=== PATIENT | female | born 1995 | race Caucasian/White ===

== ENCOUNTER 2019-02-14 16:35 | Inpatient (IN) ==
[2019-02-14] MEDS ORDERED: OXYTOCIN 30 UNITS/500 ML BAG IV PRN ×2 (17:13→22:36)
--- NOTE | 2019-02-14 17:30 | History & Physical Report ---
Date of Service February 14, 2019 Assessment & Plan (1) Uterine contractions at greater than 20 weeks of gestation: 23 yo at 38.4 wks with ctxs, in active labor, desires epidural for pain VSS Afebrile FHR reassuring GBS+ She is benign admitted Pharmacy is called for PCN RADHA Epidural for pain Anticipate History of Present Illness Chief Complaint: Contractions Primary Care Provider: NO PCP Patient is a 23 yo at 38.4 wks who has been feeling irregular ctxs since this morning Got closer and regular after 2pm No LOF/VB +FM Denies medical problems GBS+ Allergies Allergy/AdvReac Type Severity Reaction Status Date / Time azithromycin Allergy Hives Verified 02/14/19 17:01 Home Medications Home Medications Medication Instructions Recorded Confirmed Type famotidine [Pepcid] 20 mg PO BID 02/14/19 02/14/19 History vit no.[id number] 1 tab PO DAILY 02/14/19 02/14/19 History [ Vitamin] Patient History Social History Preferred Language: Citizen Of [place] marital status: Single Feels Safe at Home: Yes Safety Concerns: Feels Safe At This Time Smoking Status: Former smoker Do You Dip or Chew Tobacco: No ; Smoking End Date: 2017 ; Second Hand Exposure: No ; Tobacco Cessation Education Requested by Patient: No Hx Alcohol Use: No 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 Denies h/o any STD's, no h/o HSV/ GC/ Chlamydia Review of Systems All systems reviewed & are unremarkable except as noted in HPI & below Physical Exam Constitutional: WD/WN, vitals as above well developed, well nourished and + acute distress (with ctxs) Gastrointestinal (Abdomen): normal bowel sounds, soft, nontender, no hepatosplenomegaly ctxs q 3-4 min Genitourinary: 5 cm/ intact bag and -1 vertex per LAKIA Thomas Results & Data Vital Signs (Past 12 Hours) Vital Signs Temp Pulse Resp BP 02/14/19 16:47 36.6 C 60 18 130/82 02/14/19 16:45 60 130/82 Monitoring External Monitor 130's reactive Tocodynamometer ctxs q 3-4 min
[2019-02-14] MEDS ORDERED: PENICILLIN G POTASSIUM 6 MU in DEXTROSE 5% 250 ML IV ONE (17:45)
[2019-02-14 17:47] LABS: Hematocrit (blood only) 38.4 % (37-47); Hemoglobin 13.6 g/dL (12.0-16.0); Mean Corpuscular Hemoglobin 31.5 pg (25-34); Mean Corpuscular Volume 88.9 fL (80-100); Mean Platelet Volume 11.7 fL (7.4-10.4); Platelet Count 183 K/uL (130-400); RDW Coefficient of Variation 13.3 % (11.5-14.5); RDW Standard Deviation 43.5 fL (36.4-46.3); Red Blood Count 4.32 M/uL (4.2-5.4); White Blood Count 13.31 K/uL (4.8-10.8)
[2019-02-14] MEDS: LACTATED RINGER'S 1,000 ML IV PRN ×3 (17:47→23:20)
[2019-02-14] MEDS ORDERED: fentaNYL citrate 100 MCG/2 ML VIAL ONE (17:50)
[2019-02-14] MEDS ORDERED: ePHEDrine sulfate 50 MG/ML AMP ONE (17:50)
[2019-02-14] MEDS ORDERED: BUPIVACAINE 0.25% 30 ML VIAL ONE (17:51)
[2019-02-14] MEDS ORDERED: fentaNYL 2MCG/ML ROPIV 1.25MG/ML 100 ML BAG EPI ONE (17:51)
[2019-02-14 17:54] LABS: Mean Corpuscular Hgb Conc 35.4 g/dL (32-36)
--- NOTE | 2019-02-14 18:15 | Anesthesiology Consultation ---
Date of Service February 14, 2019 Assessment & Plan Chart Review Chart Review: Patient NOT seen in Pre Admission Testing and Acceptable Risk for Labor Epidural Consults Requested none ASA ASA2 Proposed Anesthesia Anesthesia Type: Labor Epidural and CSE Risk / Benefits Reviewed With: PT / POA / Parent / Guardian, Accepts Plan and Informed Consent Obtained History Height/Weight Height: 5 ft 5 in Weight: 112.491 kg Allergies Allergy/AdvReac Type Severity Reaction Status Date / Time azithromycin Allergy Hives Verified 02/14/19 17:01 Medications Home Medications Medication Instructions Recorded Confirmed Last Taken famotidine [Pepcid] 20 mg PO BID 02/14/19 02/14/19 02/14/19 08:00 vit no.[id number] 1 tab PO DAILY 02/14/19 02/14/19 02/14/19 08:00 [ Vitamin] Active Medications Generic Name Dose Route Start Last Admin Trade Name Freq PRN Reason Stop Dose Admin Penicillin G Potassium 6 mu/ 262 mls @ 262 mls/hr 02/14/19 17:45 02/14/19 17:55 Dextrose IV 02/14/19 18:44 262 mls/hr NOW ONE Administration Lactated Ringer's 1,000 mls @ 125 mls/hr 02/14/19 17:13 02/14/19 17:47 Lr IV 02/16/19 17:12 999 mls/hr .Q8H PRN Administration L&D Protocol Protocol NPO Date Last Intake of Fluids: 02/14/19 Time Last Intake of Fluids: 12:00 Date Last Intake of Solids: 02/14/19 Time Last Intake of Solids: 12:00 Past Medical History Medical History Forearm fracture Left forearm [place] teeth extracted Exercise / Class Metabolic Activity II 4-5 Yardwork/Stairs/Walk up hill Past Anesthesia History No Hx of Anesthesia Complications and No Family Hx of Anesthesia Complications History of PONV No Hx of PONV and No Hx of Motion Sickness Social History Smoking Status: Former smoker Do You Dip or Chew Tobacco: No Smoking End Date: 2017 Hx Alcohol Use: No Hx Substance Use: No substance use type: does not use Review of Systems no chest pain or sob Physical Exam Vital Signs Last Vital Signs Temp 36.6 C 02/14/19 16:47 Pulse 66 02/14/19 18:10 Resp 18 02/14/19 16:47 BP 130/82 02/14/19 16:47 Pulse Ox 97 02/14/19 18:10 ENMT Mouth: no TMJ abnormality Thyromental Distance: > or= 3.5 Finger Breadths Mallampati Class: II Neck normal visual inspection Respiratory normal respiratory effort Auscultation: lungs clear to auscultation bilaterally Cardiovascular Rate/Rhythm: regular rate and regular rhythm Musculoskeletal Spine: normal cervical ROM Neurologic moves all extremities Psychiatric Orientation: alert and oriented x 3 Testing Laboratory Results 02/14/19 17:34
[2019-02-14] MEDS ORDERED: DiphenhydrAMINE HCL 50 MG/ML VIAL IV PRN (18:16)
[2019-02-14] MEDS ORDERED: ePHEDrine sulfate 50 MG/ML AMP IV PRN (18:16)
[2019-02-14] MEDS ORDERED: ONDANSETRON INJ 2 MG/ML 2 ML VIAL IV PRN (18:16)
[2019-02-14] MEDS ORDERED: fentaNYL 2MCG/ML ROPIV 1.25MG/ML 100 ML BAG EPI PRN (18:16)
[2019-02-14] MEDS ORDERED: NALOXONE HCL 1 MG in SODIUM CHLORIDE 0.9% 1000ML 1,000 ML IV PRN (18:16)
[2019-02-14] MEDS ORDERED: NALBUPHINE HCL INJ 10 MG/ML AMP IV PRN (18:16)
[2019-02-14] MEDS ORDERED: NALOXONE HCL 0.4 MG/1 ML VIAL/CARP IV PRN (18:16)
[2019-02-14] MEDS ORDERED: CALCIUM CARBONATE 500 MG CHEWABLE TAB PO PRN (20:45)
[2019-02-14] MEDS ORDERED: CALCIUM CARBONATE 500 MG CHEWABLE TAB ONE (20:49)
--- NOTE | 2019-02-14 20:56 | Obstetrical Progress Note ---
Date of Service February 14, 2019 Subjective Patient is reevaluated She is comfortable now, received epidural FHR had been categ I VE; gross leaking, clear, Nitrazine +, still has large bag, head at 0 station Plan to AROM and push after 2nd dose of PCN will be started Results & Data Vital Signs (Past 12 Hours) Vital Signs Temp Pulse Resp BP Pulse Ox 02/14/19 20:50 96 H 157/60 H 97 02/14/19 20:45 92 H 97 02/14/19 20:40 87 96 02/14/19 20:39 81 123/66 93 02/14/19 20:35 91 H 97 02/14/19 20:30 91 H 18 120/55 L 98 02/14/19 20:25 85 99 02/14/19 20:20 87 99 02/14/19 20:19 85 112/56 L 02/14/19 20:15 85 99 02/14/19 20:10 77 100 02/14/19 20:09 78 111/64 02/14/19 20:05 76 99 02/14/19 20:00 80 18 99 02/14/19 19:59 79 116/60 02/14/19 19:55 83 99 02/14/19 19:50 87 99 02/14/19 19:49 86 119/65 02/14/19 19:45 86 99 02/14/19 19:40 88 110/72 100 02/14/19 19:35 96 H 100 02/14/19 19:30 88 18 109/66 100 02/14/19 19:25 87 100 02/14/19 19:20 85 100 02/14/19 19:15 94 H 100 02/14/19 19:10 97 H 126/90 100 02/14/19 19:05 99 H 99 02/14/19 19:00 90 121/96 100 02/14/19 18:55 93 H 100 02/14/19 18:50 86 124/75 99 02/14/19 18:47 102 H 91 02/14/19 18:45 101 H 100 02/14/19 18:44 101/63 02/14/19 18:42 87 113/74 02/14/19 18:40 92 H 103/69 99 02/14/19 18:38 80 102/64 02/14/19 18:36 80 105/66 02/14/19 18:35 76 99 02/14/19 18:34 68 107/59 L 02/14/19 18:32 75 115/65 02/14/19 18:30 72 98 02/14/19 18:29 68 119/63 02/14/19 18:26 63 133/72 02/14/19 18:25 61 99 02/14/19 18:20 70 100 02/14/19 18:15 79 97 02/14/19 18:10 66 97 02/14/19 18:07 72 92 02/14/19 18:05 64 96 02/14/19 18:00 61 95 02/14/19 16:47 36.6 C 60 18 130/82 02/14/19 16:45 60 130/82
--- NOTE | 2019-02-14 21:35 | Obstetrical Progress Note ---
Date of Service February 14, 2019 Subjective FHR had prolonged decel to 80-90's VE: 10/100% +1, bulging bag was AROM'ed and clear fluid IVF bolus, Nasal O2 was started FHR recovered, good variability Started to push with ctxs Continue to monitor closely Results & Data Vital Signs (Past 12 Hours) Vital Signs Temp Pulse Resp BP Pulse Ox 02/14/19 21:30 90 98 02/14/19 21:29 82 133/63 02/14/19 21:25 84 99 02/14/19 21:20 84 98 02/14/19 21:19 76 134/63 02/14/19 21:15 91 H 99 02/14/19 21:10 82 132/60 98 02/14/19 21:07 110 H 91 02/14/19 21:05 87 99 02/14/19 21:01 96 H 130/77 02/14/19 21:00 101 H 98 02/14/19 20:59 83 136/69 02/14/19 20:55 84 96 02/14/19 20:50 96 H 157/60 H 97 02/14/19 20:45 92 H 97 02/14/19 20:40 87 96 02/14/19 20:39 81 123/66 93 02/14/19 20:35 91 H 97 02/14/19 20:30 91 H 18 120/55 L 98 02/14/19 20:25 85 99 02/14/19 20:20 87 99 02/14/19 20:19 85 112/56 L 02/14/19 20:15 85 99 02/14/19 20:10 77 100 02/14/19 20:09 78 111/64 02/14/19 20:05 76 99 02/14/19 20:00 80 18 99 02/14/19 19:59 79 116/60 02/14/19 19:55 83 99 02/14/19 19:50 87 99 02/14/19 19:49 86 119/65 02/14/19 19:45 86 99 02/14/19 19:40 88 110/72 100 02/14/19 19:35 96 H 100 02/14/19 19:30 88 18 109/66 100 02/14/19 19:25 87 100 02/14/19 19:20 85 100 02/14/19 19:15 94 H 100 02/14/19 19:10 97 H 126/90 100 02/14/19 19:05 99 H 99 02/14/19 19:00 90 121/96 100 02/14/19 18:55 93 H 100 02/14/19 18:50 86 124/75 99 02/14/19 18:47 102 H 91 02/14/19 18:45 101 H 100 02/14/19 18:44 101/63 02/14/19 18:42 87 113/74 02/14/19 18:40 92 H 103/69 99 02/14/19 18:38 80 102/64 02/14/19 18:36 80 105/66 02/14/19 18:35 76 99 02/14/19 18:34 68 107/59 L 02/14/19 18:32 75 115/65 02/14/19 18:30 72 98 02/14/19 18:29 68 119/63 02/14/19 18:26 63 133/72 02/14/19 18:25 61 99 02/14/19 18:20 70 100 02/14/19 18:15 79 97 02/14/19 18:10 66 97 02/14/19 18:07 72 92 02/14/19 18:05 64 96 02/14/19 18:00 61 95 02/14/19 16:47 36.6 C 60 18 130/82 02/14/19 16:45 60 130/82
[2019-02-14] MEDS ORDERED: PENICILLIN G POTASSIUM 3 MU in DEXTROSE 5% 100 ML IV PRN (21:45)
--- NOTE | 2019-02-14 22:16 | Obstetrical Progress Note ---
Date of Service February 14, 2019 Subjective Late entry from 2200 Patient has been pushing with good efforts FHR categ I no more decels, and good variability Scalp hair visible with pushes Continue to monitor closely Results & Data Vital Signs (Past 12 Hours) Vital Signs Temp Pulse Resp BP Pulse Ox 02/14/19 22:10 85 98 02/14/19 22:09 81 131/73 02/14/19 22:05 100 H 98 02/14/19 22:00 84 18 98 02/14/19 21:59 95 H 133/73 02/14/19 21:55 89 98 02/14/19 21:50 88 124/73 98 02/14/19 21:45 122 H 97 02/14/19 21:40 90 99 02/14/19 21:39 96 H 134/68 02/14/19 21:35 80 98 02/14/19 21:30 90 18 98 02/14/19 21:29 82 133/63 02/14/19 21:25 84 99 02/14/19 21:20 84 98 02/14/19 21:19 76 134/63 02/14/19 21:16 37.1 C 02/14/19 21:15 91 H 99 02/14/19 21:10 82 132/60 98 02/14/19 21:07 110 H 91 02/14/19 21:05 87 99 02/14/19 21:01 96 H 130/77 02/14/19 21:00 101 H 18 98 02/14/19 20:59 83 136/69 02/14/19 20:55 84 96 02/14/19 20:50 96 H 157/60 H 97 02/14/19 20:45 92 H 97 02/14/19 20:40 87 96 02/14/19 20:39 81 123/66 93 02/14/19 20:35 91 H 97 02/14/19 20:30 91 H 18 120/55 L 98 02/14/19 20:25 85 99 02/14/19 20:20 87 99 02/14/19 20:19 85 112/56 L 02/14/19 20:15 85 99 02/14/19 20:10 77 100 02/14/19 20:09 78 111/64 02/14/19 20:05 76 99 10/29/19 20:00 80 18 99 02/14/19 19:59 79 116/60 02/14/19 19:55 83 99 02/14/19 19:50 87 99 02/14/19 19:49 86 119/65 02/14/19 19:45 86 99 02/14/19 19:40 88 110/72 100 02/14/19 19:35 96 H 100 02/14/19 19:30 88 18 109/66 100 02/14/19 19:25 87 100 02/14/19 19:20 85 100 02/14/19 19:15 94 H 100 02/14/19 19:10 97 H 126/90 100 02/14/19 19:05 99 H 99 02/14/19 19:00 90 121/96 100 02/14/19 18:55 93 H 100 02/14/19 18:50 86 124/75 99 02/14/19 18:47 102 H 91 02/14/19 18:45 101 H 100 02/14/19 18:44 101/63 02/14/19 18:42 87 113/74 02/14/19 18:40 92 H 103/69 99 02/14/19 18:38 80 102/64 02/14/19 18:36 80 105/66 02/14/19 18:35 76 99 02/14/19 18:34 68 107/59 L 02/14/19 18:32 75 115/65 02/14/19 18:30 72 98 02/14/19 18:29 68 119/63 02/14/19 18:26 63 133/72 02/14/19 18:25 61 99 02/14/19 18:20 70 100 02/14/19 18:15 79 97 02/14/19 18:10 66 97 02/14/19 18:07 72 92 02/14/19 18:05 64 96 02/14/19 18:00 61 95 02/14/19 16:47 36.6 C 60 18 130/82 02/14/19 16:45 60 130/82
--- NOTE | 2019-02-14 22:54 | Obstetrical Progress Note ---
Date of Service February 14, 2019 Subjective Patient has been pushing 2nd dose of PCN was given Ctxs irregular, will augment with pitocin Station of head +2, JOANNA FHR 140-150's Continue to monitor and pushing Results & Data Vital Signs (Past 12 Hours) Vital Signs Temp Pulse Resp BP Pulse Ox 02/14/19 22:50 97 H 99 02/14/19 22:49 76 127/66 02/14/19 22:45 105 H 98 02/14/19 22:40 117 H 97 02/14/19 22:39 86 131/71 02/14/19 22:35 114 H 98 02/14/19 22:30 91 H 18 98 02/14/19 22:29 104 H 126/68 02/14/19 22:25 79 98 02/14/19 22:21 79 124/58 L 02/14/19 22:20 78 97 02/14/19 22:19 84 94 02/14/19 22:15 95 H 98 02/14/19 22:10 85 98 02/14/19 22:09 81 131/73 02/14/19 22:05 100 H 98 02/14/19 22:00 84 18 98 02/14/19 21:59 95 H 133/73 02/14/19 21:55 89 98 02/14/19 21:50 88 124/73 98 02/14/19 21:45 122 H 97 02/14/19 21:40 90 99 02/14/19 21:39 96 H 134/68 02/14/19 21:35 80 98 02/14/19 21:30 90 18 98 02/14/19 21:29 82 133/63 02/14/19 21:25 84 99 02/14/19 21:20 84 98 02/14/19 21:19 76 134/63 02/14/19 21:16 37.1 C 02/14/19 21:15 91 H 99 02/14/19 21:10 82 132/60 98 02/14/19 21:07 110 H 91 02/14/19 21:05 87 99 02/14/19 21:01 96 H 130/77 02/14/19 21:00 101 H 18 98 02/14/19 20:59 83 136/69 02/14/19 20:55 84 96 02/14/19 20:50 96 H 157/60 H 97 02/14/19 20:45 92 H 97 02/14/19 20:40 87 96 02/14/19 20:39 81 123/66 93 02/14/19 20:35 91 H 97 02/14/19 20:30 91 H 18 120/55 L 98 02/14/19 20:25 85 99 02/14/19 20:20 87 99 02/14/19 20:19 85 112/56 L 02/14/19 20:15 85 99 02/14/19 20:10 77 100 02/14/19 20:09 78 111/64 02/14/19 20:05 76 99 02/14/19 20:00 80 18 99 02/14/19 19:59 79 116/60 02/14/19 19:55 83 99 02/14/19 19:50 87 99 02/14/19 19:49 86 119/65 02/14/19 19:45 86 99 02/14/19 19:40 88 110/72 100 02/14/19 19:35 96 H 100 02/14/19 19:30 88 18 109/66 100 02/14/19 19:25 87 100 02/14/19 19:20 85 100 02/14/19 19:15 94 H 100 02/14/19 19:10 97 H 126/90 100 02/14/19 19:05 99 H 99 02/14/19 19:00 90 121/96 100 02/14/19 18:55 93 H 100 02/14/19 18:50 86 124/75 99 02/14/19 18:47 102 H 91 02/14/19 18:45 101 H 100 02/14/19 18:44 101/63 02/14/19 18:42 87 113/74 02/14/19 18:40 92 H 103/69 99 02/14/19 18:38 80 102/64 02/14/19 18:36 80 105/66 02/14/19 18:35 76 99 02/14/19 18:34 68 107/59 L 02/14/19 18:32 75 115/65 02/14/19 18:30 72 98 02/14/19 18:29 68 119/63 02/14/19 18:26 63 133/72 02/14/19 18:25 61 99 02/14/19 18:20 70 100 02/14/19 18:15 79 97 02/14/19 18:10 66 97 02/14/19 18:07 72 92 02/14/19 18:05 64 96 02/14/19 18:00 61 95 02/14/19 16:47 36.6 C 60 18 130/82 02/14/19 16:45 60 130/82
[2019-02-15] MEDS ORDERED: ACETAMINOPHEN 325 MG TAB PO PRN (00:38)
[2019-02-15] MEDS ORDERED: BISACODYL 10 MG SUPP PR PRN (00:38)
[2019-02-15] MEDS ORDERED: BENZOCAINE 20% AER SPR 82.5 GM CAN EXT PRN (00:38)
[2019-02-15] MEDS ORDERED: HYDROCORTISONE ACETATE 25 MG SUPP PR PRN (00:38)
[2019-02-15] MEDS ORDERED: OXYTOCIN 30 UNITS/500 ML BAG IV PRN (00:38)
[2019-02-15] MEDS ORDERED: OXYCODONE/ACETAMINOPHEN 5mg/325mg TAB PO PRN (00:38)
[2019-02-15] MEDS ORDERED: SUPERCREAM 0.870% 15 GM JAR EXT PRN (00:38)
[2019-02-15] MEDS ORDERED: DIPHTHERIA/TETANUS/PERTUSSIS 0.5 ML SYR/VIAL IM ONE (00:38)
[2019-02-15] MEDS ORDERED: LACTATED RINGER'S 1,000 ML IV SCH (00:45)
[2019-02-15] MEDS ORDERED: OXYTOCIN 10 UNITS/ML VIAL IM ONE (01:42)
--- NOTE | 2019-02-15 02:17 | Anesthesia Procedure Note ---
Date of Service February 15, 2019 Anesthesia Post Epidural Note Vital Signs Vital Signs: Temp Pulse Resp BP Pulse Ox 36.8 C 81 18 136/81 96 02/15/19 00:45 02/15/19 02:05 02/15/19 01:45 02/15/19 02:05 02/15/19 00:40 Notes Mental Status: alert / awake / arousable and participated in evaluation Nausea / Vomiting: adequately controlled Pain: adequately controlled Airway Patency, RR, SpO2: stable & adequate BP & HR: stable & adequate Hydration State: stable & adequate Neuraxial Anesthesia: was administered and sensory block is resolving Anesthetic Complications: no major complications apparent and Pt Satisfied with anesthetic care Epidural: Removed without complications and With tip intact
[2019-02-15] MEDS: IBUPROFEN 600 MG TAB PO PRN ×5 (02:32→23:06)
--- NOTE | 2019-02-15 03:11 | Delivery Summary ---
DATE OF OPERATION: 02/15/2019 TIME OF DELIVERY OF BABY: 00:12 a.m. DETAILS OF DELIVERY: The patient was found to be fully dilated and desired to push. She pushed for about 3 hours and delivered the head without difficulty. Shoulders were delivered with minimal traction. Baby was handed off to the mother where mouth and nose were suctioned. Cord was clamped x2 and cut. It was a 3-vessel cord. Cord blood was obtained. The vagina and perineum were checked for lacerations. There was a second-degree perineal laceration at the posterior fourchette. It was confirmed with rectal exam. Excellent sphincter tone was noted. Gloves were changed. Perineal body muscles around the external sphincter were held with Allis clamp and [id number] stitches x2 were placed to help to reinforce sphincter muscles. Rectal exam was repeated. Excellent sphincter tone was noted and no sutures were felt. Gloves were changed. With another sterile 2-0 Vicryl, vaginal mucosa was repaired in a running locked fashion and then bulbocavernous muscles and the skin in subcuticular fashion. Excellent hemostasis was achieved. Placenta was found to be in the vagina, delivered in spontaneous as intact and complete. Uterus was explored, found to be empty. Lower segment was cleared of all clots and debris. Fundus was firm. EBL was 200 mL. Mom and baby tolerated the procedure well. Sponge, lap, needle count was correct x2. Baby was a viable male , Apgars 8 and 9. No complications happened and I was present during whole procedure. I attest to the content of the Intraoperative Record and any orders documented therein. Any exceptions are noted below. JAYJAYD
[2019-02-15] MEDS: PRENATAL VITAMIN 1 TAB PO SCH (08:03)
[2019-02-15] MEDS: FERROUS SULFATE 325 MG TAB PO SCH (08:03)
[2019-02-15] MEDS: DOCUSATE SODIUM 100 MG CAP PO SCH ×2 (08:03→20:35)
[2019-02-15] MEDS: MAGNESIUM HYDROXIDE SUSP 30 ML UDC PO SCH ×2 (08:10→20:35)
[2019-02-15] MEDS ORDERED: BISACODYL 5 MG TABEC PO SCH (09:00)
[2019-02-16] MEDS: IBUPROFEN 600 MG TAB PO PRN ×3 (05:10→18:35)
[2019-02-16 07:54] LABS: Hematocrit (blood only) 32.5 % (37-47); Hemoglobin 10.6 g/dL (12.0-16.0); Mean Corpuscular Hemoglobin 30.3 pg (25-34); Mean Corpuscular Hgb Conc 32.6 g/dL (32-36); Mean Corpuscular Volume 92.9 fL (80-100); Mean Platelet Volume 11.9 fL (7.4-10.4); Platelet Count 144 K/uL (130-400); RDW Standard Deviation 47.2 fL (36.4-46.3); White Blood Count 9.46 K/uL (4.8-10.8)
[2019-02-16] MEDS: PRENATAL VITAMIN 1 TAB PO SCH (08:27)
[2019-02-16] MEDS: FERROUS SULFATE 325 MG TAB PO SCH (08:27)
[2019-02-16] MEDS: DOCUSATE SODIUM 100 MG CAP PO SCH ×2 (08:27→20:56)
[2019-02-16] MEDS: MAGNESIUM HYDROXIDE SUSP 30 ML UDC PO SCH ×2 (08:30→16:45)
--- NOTE | 2019-02-16 10:04 | Obstetrical Progress Note ---
Date of Service February 16, 2019 Assessment & Plan (1) delivery delivered: c/sed day #2 pt doing well wishes to be disch today Subjective Ambulation: ambulating normally Voiding: no voiding problems Passing Gas:: Yes Diet Tolerance:: clear liquids Lochia:: Small Feeding Type:: breast feeding Review of Systems All systems reviewed & are unremarkable except as noted in HPI & below Physical Exam Constitutional WD/WN, vitals as above well developed and well nourished Eyes PERRL, conjunctivae normal, anicteric sclerae ENMT external ear and nose normal, oropharynx normal Neck trachea midline, no thyromegaly Respiratory normal respiratory effort, lungs clear to auscultation Cardiovascular RRR, no murmur, no edema Chest (Breasts) normal inspection/palpation of breasts Gastrointestinal (Abdomen) normal bowel sounds, soft, nontender, no hepatosplenomegaly Musculoskeletal no cyanosis or clubbing, extremities motor strength 5/5 Skin no rashes, warm and dry + incision (Clean,dry and intact) Neurologic patellar DTR's 2+ bilat, sensation intact Psychiatric A+Ox3, euthymic affect Genitourinary normal external appearance Lymphatic no cervical or axillary lymphadenopathy Results & Data Vital Signs (Past 12 Hours) Vital Signs Temp Pulse Resp BP Pulse Ox 02/16/19 07:45 36.6 C 85 20 112/75 97 02/15/19 23:45 36.5 C 80 18 123/78
[2019-02-17] MEDS: IBUPROFEN 600 MG TAB PO PRN ×3 (01:00→15:36)
[2019-02-17 06:29] LABS: Hematocrit (blood only) 32.2 % (37-47); Hemoglobin 10.8 g/dL (12.0-16.0)
[2019-02-17] MEDS: MAGNESIUM HYDROXIDE SUSP 30 ML UDC PO SCH (09:00)
[2019-02-17] MEDS: FERROUS SULFATE 325 MG TAB PO SCH (09:23)
[2019-02-17] MEDS: DOCUSATE SODIUM 100 MG CAP PO SCH (09:24)
[2019-02-17] MEDS: PRENATAL VITAMIN 1 TAB PO SCH (09:24)
--- NOTE | 2019-02-17 09:24 | Obstetrical Progress Note ---
Date of Service February 17, 2019 Subjective Patient is seen and examined. She feels well, no complaints. Ambulating without dizziness Voiding without difficulty Tolerating regular diet with out N&V Bleeding is minimal No fever/ chills/ CP/ SOB/ N&V/ Leg pain Breast feeding without problems Vital Signs Temp Pulse Resp BP Pulse Ox 02/16/19 23:30 36.7 C 86 16 138/82 97 02/16/19 20:00 82 18 120/82 97 02/16/19 16:00 36.7 C 87 18 144/84 H 98 02/16/19 12:15 36.7 C 78 20 126/79 Lab Results 02/14/19 02/16/19 02/17/19 Range/Units 17:34 07:16 06:12 WBC 13.31 H 9.46 (4.8-10.8) K/uL RBC 4.32 3.50 L (4.2-5.4) M/uL Hgb 13.6 10.6 L D 10.8 L (12.0-16.0) g/dL Hct 38.4 32.5 L 32.2 L (37-47) % MCV 88.9 92.9 (80-100) fL MCH 31.5 30.3 (25-34) pg MCHC 35.4 32.6 (32-36) g/dL RDW Std Deviation 43.5 47.2 H (36.4-46.3) fL RDW Coeff of Tarun 13.3 14.0 (11.5-14.5) % Plt Count 183 144 (130-400) K/uL MPV 11.7 H 11.9 H (7.4-10.4) fL PE: General: Alert, orientedx3, NAD Abd: soft, NT, fundus firm, below Umbilicus Perineum intact, Lochia rubra minimal Ext; NT, no edema AP: 23 yo s/p , ppd# 2 VSS Afebrile doing well Continue routine care All questions were answered Discussed when to call D/C home , f/u in office Results & Data Vital Signs (Past 12 Hours) Vital Signs Temp Pulse Resp BP Pulse Ox 02/16/19 23:30 36.7 C 86 16 138/82 97
== END 2019-02-17 18:30 | disposition home or self-care (01) | DRG 807 ==
LOC: OPB 16:35 → 4S1 16:39 → 4S2 02-15 03:20

== ENCOUNTER 2021-08-04 01:20 | Inpatient (IN) ==
[2021-08-04] MEDS ORDERED: LIDOCAINE 1% LOCAL 20 ML VIAL ONE (01:41)
[2021-08-04] MEDS ORDERED: OXYTOCIN 10 UNITS/ML VIAL ONE (01:42)
[2021-08-04] MEDS ORDERED: OXYTOCIN 30 UNITS/500ML NSS ONE (01:47)
[2021-08-04] MEDS ORDERED: OXYTOCIN 30 UNITS/500 ML BAG IV PRN ×2 (02:02→02:29)
[2021-08-04] MEDS ORDERED: LACTATED RINGER'S 1,000 ML IV PRN (02:02)
--- NOTE | 2021-08-04 02:06 | Delivery Summary ---
Vaginal Delivery Summary Date of Service August 04, 2021 Vaginal Delivery Summary Precipitous delivery the patient arrived in labor and delivery and was fully dilated I arrived in the room and she pushed over 1 contraction nonmedicated baby in occiput anterior position baby was delivered with gentle traction live vigorous female infant Cord clamped and cut no nuchal cord Cord blood obtained placenta was removed with traction there was a velamentous insertion and the placenta was then grasped manually in the lower vagina and removed IM Pitocin was started this we had no IV access and then later IV Pitocin was started There was a right periclitoral tear along with a second-degree tear this was repaired first by injecting with lidocaine and then repairing with 3-0 Vicryl at this stage hemostasis improved sponge and instrument counts were correct uterine tone was good baby and mother in good condition
[2021-08-04] MEDS ORDERED: oxyCODONE/ACETAMINOPHEN 5mg/325mg TAB PO PRN (02:29)
[2021-08-04] MEDS ORDERED: HYDROCORTISONE ACETATE 25 MG SUPP PR PRN (02:29)
[2021-08-04] MEDS ORDERED: bisacodyL 10 MG SUPP PR PRN (02:29)
[2021-08-04] MEDS ORDERED: DIPHTHERIA/TETANUS/PERTUSSIS 0.5 ML SYR/VIAL IM ONE (02:29)
[2021-08-04] MEDS ORDERED: BENZOCAINE 20% AER SPR 82.5 GM CAN EXT PRN (02:29)
[2021-08-04 02:41] LABS: Hematocrit (blood only) 34.5 % (37-47); Hemoglobin 11.8 g/dL (12.0-16.0); Mean Corpuscular Hemoglobin 30.6 pg (25-34); Mean Corpuscular Hgb Conc 34.2 g/dL (32-36); Mean Corpuscular Volume 89.6 fL (80-100); Mean Platelet Volume 11.3 fL (7.4-10.4); Platelet Count 185 K/uL (130-400); RDW Coefficient of Variation 14.3 % (11.5-14.5); RDW Standard Deviation 46.7 fL (36.4-46.3); Red Blood Count 3.85 M/uL (4.2-5.4); White Blood Count 12.66 K/uL (4.8-10.8)
[2021-08-04] MEDS: IBUPROFEN 600 MG TAB PO PRN ×4 (03:21→18:43)
[2021-08-04] MEDS: ACETAMINOPHEN 325 MG TAB PO PRN ×2 (03:22→20:28)
[2021-08-04] MEDS: PRENATAL VITAMIN 1 TAB PO SCH (07:32)
[2021-08-04] MEDS: DOCUSATE SODIUM 100 MG CAP PO SCH ×2 (07:32→20:28)
[2021-08-05] MEDS: IBUPROFEN 600 MG TAB PO PRN ×2 (03:40→09:16)
--- NOTE | 2021-08-05 07:40 | Obstetrical Progress Note ---
Date of Service <[place] YanDO - Last Filed: 08/05/21 07:57> August 05, 2021 Assessment & Plan <Florida Heredia DO - Last Filed: 08/05/21 07:57> (1) Encounter for care and examination after delivery: 26 yo post op day1 from , doing well. -Continue routine post care. -vital signs reviewed and WNL (Tmax 36.9) -Blood Type O+, GBS-, Rubella Immune -Encourage ambulation, monitor and control pain with Motrin, tylenol PRN, resume regular diet, monitor lochia -encourage breast feeding -hemoglobin 11.8 Day #:: 1 <Steve Wynn MD - Last Filed: 08/05/21 09:29> (1) Encounter for care and examination after delivery: Subjective <[place] YanDO - Last Filed: 08/05/21 07:57> Ambulation: ambulating normally Voiding: no voiding problems Passing Gas:: Yes Diet Tolerance:: regular diet Lochia:: Small Feeding Type:: breast feeding Current Pain Level(1-10): 1 Review of Systems Denies fever, chills, sweats Denies shortness of breath, difficulty breathing, chest pain, palpitations, chest pressure. Denies breast pain. Denies dysuria. Denies headache or changes in vision. Physical Exam <[place] YanDO - Last Filed: 08/05/21 07:57> General: Alert, oriented. No acute distress. Cardiac: Regular rate and rhythm, no murmurs/rubs/gallops. Respiratory: Clear to auscultation bilaterally a/p, no wheezes/rales/rhonchi. No increased work of breathing. Symmetrical chest rise. No respiratory distress. Abdomen: Soft, nontender, nondistended. Bowel sounds present. Uterus: Uterine fundus firm, palpable at umbilicus. Lower Extremities: No lower extremity edema or swelling. No deep calf pain. Elda's negative bilaterally.. Results & Data ([facility]) <Floridakathy Heredia DO - Last Filed: 08/05/21 07:57> Vital Signs (Past 12 Hours) Vital Signs Temp Pulse Resp BP Pulse Ox 08/04/21 23:20 36.9 C 86 16 108/71 97 08/04/21 20:15 37.0 C 78 16 107/73 98 <Steve Wynn MD - Last Filed: 08/05/21 09:29> Co-Signing Physician Notes Patient was seen and evaluated and agree with the above findings and plan. Stable for discharge Resident Activity Tracking <Florida Heredia DO - Last Filed: 08/05/21 07:57> Resident Involvement: Resident Care Provided Care Provided: Adult Hospital Medicine and OB Delivery
[2021-08-05] MEDS: DOCUSATE SODIUM 100 MG CAP PO SCH (09:16)
[2021-08-05] MEDS: PRENATAL VITAMIN 1 TAB PO SCH (09:17)
[2021-08-05] MEDS ORDERED: bisacodyL 5 MG TABEC PO SCH (20:00)
== END 2021-08-05 10:35 | disposition home or self-care (01) | DRG 807 ==
LOC: OPB 01:20 → 4S1 01:24 → 4E2 06:44